=== PATIENT | female | born 1985 | race Caucasian/White ===

== ENCOUNTER 2021-06-23 18:11 | Inpatient (IN) ==
[2021-06-23] MEDS ORDERED: OXYTOCIN 30 UNITS/500 ML BAG IV PRN ×2 (18:59→23:56)
[2021-06-23] MEDS ORDERED: LACTATED RINGER'S 1,000 ML IV PRN (18:59)
[2021-06-23 19:32] LABS: Hematocrit (blood only) 41.9 % (37-47); Hemoglobin 14.8 g/dL (12.0-16.0); Mean Corpuscular Hemoglobin 31.8 pg (25-34); Mean Corpuscular Hgb Conc 35.3 g/dL (32-36); Mean Corpuscular Volume 90.1 fL (80-100); Mean Platelet Volume 10.9 fL (7.4-10.4); Platelet Count 227 K/uL (130-400); RDW Coefficient of Variation 14.2 % (11.5-14.5); RDW Standard Deviation 46.5 fL (36.4-46.3); Red Blood Count 4.65 M/uL (4.2-5.4); White Blood Count 11.39 K/uL (4.8-10.8)
--- NOTE | 2021-06-23 19:36 | History & Physical Report ---
Date of Service June 23, 2021 Assessment & Plan (1) : Plan: 36 y/o G1 at 40 wga presents in labor VSS Fetus cat 1 Labor - desires epidural, plan arom when comfortable if not srom GBS neg desires epidural, anesthesia aware History of Present Illness Chief Complaint: Contractions Primary Care Provider: NO PCP 36 y/o G1 at 40 wga w/ MICHAEL 06/23 by LMP presents w/ ctx increasing in frequency and intensity, <q5min for >1hr. +FM; denies LOF, VB PNI: R clubbed foot AMA Past [facility] Hx: G1 Hx irreg periods w/ PCOS 11/2020 neg cotest Denies hx STIs Allergies Allergy/AdvReac Type Severity Reaction Status Date / Time Sulfa (Sulfonamide Allergy Intermediate rash, hives Verified 06/23/21 19:07 Antibiotics) Home Medications Medication Instructions Recorded Confirmed Type cetirizine 10 mg tablet (Zyrtec) 10 mg PO DAILY PRN 11/28/20 06/22/21 History prenat.vits,rishi,[id number] 1 tab PO DAILY 11/28/20 06/22/21 History aspirin 81 mg tablet,delayed 81 mg PO DAILY 06/22/21 06/22/21 History release Patient History Medical History PCOS (polycystic ovarian syndrome) Surgical History S/P wisdom tooth extraction Family History Mother Dyslipidemia Aunt Breast cancer Ovarian cancer Grandfather (Maternal) Hypertension Social History Smoking Status: Never smoker Second Hand Exposure: No; Do You Dip or Chew Tobacco: No; Tobacco Cessation Education Requested by Patient: No Hx Alcohol Use: No Hx Substance Use: No Preferred Language: [place] Communication Ability: Effective Global Cmo Required: No Beliefs That Will Affect Care: None marital status: marital status details: Jass (34) [phone] Current Living Situation: Spouse Current Living Situation Comment: lvies with spouse, no pets. 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 Other Information That Helps Us Care for You: No Feels Safe at Home: Yes Safety Concerns: Feels Safe At This Time Assistive Devices: None Physical Exam Genitourinary: OB Exam Abdomen: + estimated weight (7) OB Exam Monitor Tracing: + external FHT monitor used, + external uterine monitor used (q4) and + category I (120/mod/+accel/-decel) SVE 5cm by nursing Results & Data ([place]) Vital Signs (Past 12 Hours) Vital Signs Temp Pulse Resp BP 06/23/21 18:29 97.7 F 20 06/23/21 18:28 79 121/76 Laboratory Results OB Labs: Blood Type O Positive 12/27/20 Antibody Screen NEGATIVE 12/27/20 Hemoglobin 12.8 g/dL (12.0-16.0) 04/04/21 Hematocrit 38.1 % (37-47) 04/04/21 Mean Corpuscular Volume 87.1 fL (80-100) 12/27/20 Platelet Count 264 K/uL (130-400) 12/27/20 Rubella IgG Antibody Immune (Immune) 12/27/20 Rapid Plasma Reagin Nonreactive (Nonreactive) 12/27/20 Hepatitis B Surface Antigen Neg (Neg) 12/27/20 HIV (1&2) Ab and P24 Ag, 4th Gener Neg (Neg) 12/27/20 Glucose 1 Hour 50 gm Load 109 mg/dl (70-130) 04/04/21 OB Optional Labs: Chlamydia trachomatis RNA NOT DETECTED (NOT DETECTED) 11/29/20 Neisseria gonorrhoeae RNA NOT DETECTED (NOT DETECTED) 11/29/20 Labs Reviewed: neg cf/sma--akh declined genetics/afp--ak GBS neg Diagnostic Findings anterior plac Code Status & VTE Plan VTE Prophylaxis Plan VTE Prophylaxis will be ordered: No Coding Level of Care Code None Diagnoses Z34.90
[2021-06-23] MEDS ORDERED: SODIUM CHLORIDE 0.9% INJ 10 ML VIAL ONE (19:37)
[2021-06-23] MEDS ORDERED: fentaNYL citrate 100 MCG/2 ML VIAL ONE (19:37)
[2021-06-23] MEDS ORDERED: ePHEDrine sulfate 50 MG/ML AMP ONE (19:37)
[2021-06-23] MEDS ORDERED: fentaNYL 2MCG/ML ROPIVACAINE 1.25MG/ML 100 ML BAG EPI ONE (19:38)
[2021-06-23] MEDS ORDERED: BUPIVACAINE 0.25% 30 ML VIAL ONE (19:38)
[2021-06-23] MEDS ORDERED: fentaNYL 2MCG/ML ROPIVACAINE 1.25MG/ML 100 ML BAG EPI PRN (19:56)
[2021-06-23] MEDS ORDERED: NALOXONE HCL 0.4 MG/1 ML VIAL/CARP IV PRN (19:56)
[2021-06-23] MEDS ORDERED: diphenhydrAMINE 50 MG/ML VIAL IV PRN (19:56)
[2021-06-23] MEDS ORDERED: NALBUPHINE HCL INJ 10 MG/ML AMP IV PRN (19:56)
[2021-06-23] MEDS ORDERED: NALOXONE HCL 1 MG in SODIUM CHLORIDE 0.9% 1000ML 1,000 ML IV PRN (19:56)
[2021-06-23] MEDS ORDERED: ePHEDrine sulfate 50 MG/ML AMP IV PRN (19:56)
[2021-06-23] MEDS ORDERED: ONDANSETRON INJ 2 MG/ML 2 ML VIAL IV PRN (19:56)
--- NOTE | 2021-06-23 19:58 | Anesthesiology Consultation ---
Date of Service June 23, 2021 Assessment & Plan Chart Review Chart Review: Patient NOT seen in Pre Admission Testing and Acceptable Risk for Labor Epidural Consults Requested none ASA ASA2 Proposed Anesthesia Anesthesia Type: Labor Epidural and CSE Risk / Benefits Reviewed With: PT / POA / Parent / Guardian, Accepts Plan and Informed Consent Obtained History Height/Weight Height: 5 ft 4 in Weight: 76.657 kg Allergies Allergy/AdvReac Type Severity Reaction Status Date / Time Sulfa (Sulfonamide Allergy Intermediate rash, hives Verified 06/23/21 19:07 Antibiotics) Medications Home Medications Medication Instructions Recorded Confirmed Last Taken cetirizine 10 mg tablet (Zyrtec) 10 mg PO DAILY PRN 11/28/20 06/22/21 Unknown prenat.vits,rishi,[id number] 1 tab PO DAILY 11/28/20 06/22/21 Unknown aspirin 81 mg tablet,delayed 81 mg PO DAILY 06/22/21 06/22/21 Unknown release NPO Date Last Intake of Fluids: 06/23/21 Time Last Intake of Fluids: 19:00 Date Last Intake of Solids: 06/23/21 Time Last Intake of Solids: 12:00 Past Medical History Medical History PCOS (polycystic ovarian syndrome) Exercise / Class Metabolic Activity II 4-5 Yardwork/Stairs/Walk up hill Past Family History Family History Mother Dyslipidemia Aunt Breast cancer Ovarian cancer Grandfather (Maternal) Hypertension Past Surgical History Surgical History S/P wisdom tooth extraction Past Anesthesia History No Hx of Anesthesia Complications and No Family Hx of Anesthesia Complications History of PONV No Hx of PONV and No Hx of Motion Sickness Social History Smoking Status: Never smoker Do You Dip or Chew Tobacco: No Hx Alcohol Use: No Hx Substance Use: No substance use type: does not use Review of Systems no chest pain or sob Physical Exam Vital Signs Last Vital Signs Temp 36.5 C 06/23/21 18:29 Pulse 65 06/23/21 19:56 Resp 20 06/23/21 18:29 BP 118/64 06/23/21 19:46 Pulse Ox 97 06/23/21 19:56 ENMT Mouth: no TMJ abnormality Thyromental Distance: > or= 3.5 Finger Breadths Mallampati Class: II Neck normal visual inspection Respiratory normal respiratory effort Auscultation: lungs clear to auscultation bilaterally Cardiovascular Rate/Rhythm: regular rate and regular rhythm Musculoskeletal Spine: normal cervical ROM Neurologic moves all extremities Psychiatric Orientation: alert and oriented x 3 Testing Laboratory Results 06/23/21 19:24
--- NOTE | 2021-06-23 22:11 | Delivery Summary ---
Vaginal Delivery Summary Date of Service June 23, 2021 Vaginal Delivery Summary and 2nd Degree LAC PREOPERATIVE DIAGNOSIS: 1. Single intrauterine at 40 weeks gestation 2. Labor 3. clubbed feet 4. Advanced maternal age POSTOPERATIVE DIAGNOSIS: 1. Single intrauterine at 40 weeks gestation 2. Labor 3. clubbed feet 4. Advanced maternal age 5. Delivered PROCEDURE: 1. Normal spontaneous vaginal delivery. SURGEON: Jacinda Burr MD ANESTHESIA: Epidural. ESTIMATED BLOOD LOSS: 300 mL FLUIDS: Continuous LR. URINE OUTPUT: None. COMPLICATIONS: None. CONDITION: Stable. INDICATIONS: 36 y/o G1 at 40 weeks gestation presented with contractions increasing in frequency and intensity. She was checked and found to be 5cm on arrival. She continued to spontaneously progress well. She received an epidural for pain control. Once comfortable, she was found to be complete with membranes past the introitus. Membranes were ruptured and she desired to push. FINDINGS: A viable male infant, weight pending with Apgars of 8 and 9 at 1 and 5 minutes respectively. SPECIMEN: Placenta, cord blood OPERATIVE REPORT: The patient progressed to 10 cm, 100% effaced and +2 station, pushed over intact perineum for 15 minutes with anesthesia to deliver a viable male infant, weight and Apgars as above. Head of delivered in CHRISTIANO position. No nuchal cord was present. Body and shoulders were delivered without difficulty. was delivered to maternal abdomen and nursing staff. Delayed cord clamping was performed for 60 seconds. Cord was clamped and cut. Cord blood was obtained. Placenta delivered spontaneously intact with 3-vessel cord. IV oxytocin and fundal massage were given for excellent hemostasis. Vagina, cervix, perineum, and placenta were inspected. A second degree laceration was noted and repaired using 3-0 Vicryl in the usual fashion. Hemostatic left labial scrape was noted and not needed to be repaired. Rectal exam confirmed no suture in the rectum. Sponge and needle counts correct x2. No sponges were left behind. Mother and stable in immediate period. [facility] [place] Charge Delivery Type Details: and 2nd Degree LAC
--- NOTE | 2021-06-23 22:32 | Anesthesia Procedure Note ---
Date of Service June 23, 2021 Anesthesia Post Epidural Note Vital Signs Vital Signs: Temp Pulse Resp BP Pulse Ox 36.5 C 75 20 123/71 99 06/23/21 18:29 06/23/21 22:17 06/23/21 18:29 06/23/21 22:17 06/23/21 21:36 Notes Mental Status: alert / awake / arousable and participated in evaluation Nausea / Vomiting: adequately controlled Pain: adequately controlled Airway Patency, RR, SpO2: stable & adequate BP & HR: stable & adequate Hydration State: stable & adequate Neuraxial Anesthesia: was administered and sensory block is resolving Anesthetic Complications: no major complications apparent and Pt Satisfied with anesthetic care Epidural: Removed without complications and With tip intact
[2021-06-23] MEDS ORDERED: HYDROCORTISONE ACETATE 25 MG SUPP PR PRN (23:56)
[2021-06-23] MEDS ORDERED: BENZOCAINE 20% AER SPR 82.5 GM CAN EXT PRN (23:56)
[2021-06-23] MEDS ORDERED: DIPHTHERIA/TETANUS/PERTUSSIS 0.5 ML SYR/VIAL IM ONE (23:56)
[2021-06-23] MEDS ORDERED: ACETAMINOPHEN 325 MG TAB PO PRN (23:56)
[2021-06-24] MEDS: IBUPROFEN 600 MG TAB PO PRN ×4 (03:02→20:03)
[2021-06-24] MEDS: DOCUSATE SODIUM 100 MG CAP PO SCH ×2 (07:41→21:00)
[2021-06-24] MEDS: PRENATAL VITAMIN 1 TAB PO SCH (07:41)
--- NOTE | 2021-06-24 07:59 | Obstetrical Progress Note ---
Date of Service June 24, 2021 Assessment & Plan (1) Encounter for care and examination after delivery: 36 yo PP1 from , doing well -Meeting all pp milestones -O+/rubella immune/ -f/u 6 weeks for appt, continue routine pp care Subjective Ambulation: ambulating normally Voiding: no voiding problems Passing Gas:: Yes Diet Tolerance:: regular diet Lochia:: Moderate Feeding Type:: breast feeding Pain well managed with medication Review of Systems Denies fevers, chills, n/v, BRADY, CP, SOB Physical Exam Constitutional WD/WN, vitals as above no acute distress Respiratory normal respiratory effort, lungs clear to auscultation Cardiovascular RRR, no murmur, no edema Gastrointestinal (Abdomen) Percussion/Palpation: abdomen soft; abdomen nontender fundus firm at umbilicus and NT Musculoskeletal BLE symmetric, nonerythematous, nontender Results & Data ([facility]) Vital Signs (Past 12 Hours) Vital Signs Temp Pulse Pulse Resp BP BP Pulse Ox 06/24/21 03:00 98.4 F 76 16 109/67 96 06/24/21 00:25 98.4 F 90 16 113/60 97 06/24/21 00:01 83 116/59 L 06/24/21 00:00 97.9 F 20 06/23/21 23:46 81 116/61 06/23/21 23:31 89 123/64 06/23/21 23:30 20 06/23/21 23:16 103 H 123/58 L 06/23/21 23:01 78 118/64 06/23/21 23:00 18 06/23/21 22:47 76 121/65 06/23/21 22:32 75 144/68 H 06/23/21 22:17 75 123/71 06/23/21 22:01 76 119/72 06/23/21 21:36 88 99 06/23/21 21:31 79 96 06/23/21 21:26 98 H 88 L 06/23/21 21:24 86 117/68 06/23/21 21:23 81 118/69 06/23/21 21:21 92 H 98 06/23/21 21:16 95 H 97 06/23/21 21:11 82 98 06/23/21 21:07 81 94/55 L 06/23/21 21:06 79 98 06/23/21 21:01 65 97 06/23/21 20:56 60 97 06/23/21 20:54 67 100/57 L 06/23/21 20:51 62 97 06/23/21 20:46 65 95 06/23/21 20:41 61 97 06/23/21 20:38 65 102/57 L 06/23/21 20:36 75 98 06/23/21 20:31 73 97 06/23/21 20:26 64 93/61 L 99 06/23/21 20:21 76 99 06/23/21 20:19 72 93 06/23/21 20:16 68 112/70 99 06/23/21 20:14 63 113/70 06/23/21 20:12 71 116/74 91 06/23/21 20:11 64 100 06/23/21 20:10 116 H 239/165 H 06/23/21 20:06 64 131/67 98 06/23/21 20:01 81 99 06/23/21 20:00 59 L 91 06/23/21 19:59 64 116/58 L
[2021-06-24 08:02] LABS: Hematocrit (blood only) 36.1 % (37-47); Hemoglobin 12.1 g/dL (12.0-16.0); Mean Corpuscular Hemoglobin 30.6 pg (25-34); Mean Corpuscular Hgb Conc 33.5 g/dL (32-36); Mean Corpuscular Volume 91.2 fL (80-100); Mean Platelet Volume 10.7 fL (7.4-10.4); Platelet Count 189 K/uL (130-400); RDW Coefficient of Variation 14.2 % (11.5-14.5); RDW Standard Deviation 47.2 fL (36.4-46.3); Red Blood Count 3.96 M/uL (4.2-5.4); White Blood Count 11.82 K/uL (4.8-10.8)
[2021-06-24] MEDS ORDERED: bisacodyL 5 MG TABEC PO SCH (20:00)
[2021-06-25] MEDS ORDERED: bisacodyL 10 MG SUPP PR PRN
--- NOTE | 2021-06-25 07:21 | Obstetrical Progress Note ---
Date of Service June 25, 2021 Assessment & Plan (1) Encounter for care and examination after delivery: 36 yo PP1 from , doing well -Meeting all pp milestones -O+/rubella immune/ -stable for d/c home, f/u 6 weeks for appt Subjective Ambulation: ambulating normally Voiding: no voiding problems Passing Gas:: Yes Diet Tolerance:: regular diet Lochia:: Moderate Feeding Type:: breast feeding Pain well managed with medication Review of Systems Denies fevers, chills, n/v, BRADY, CP, SOB Physical Exam Constitutional WD/WN, vitals as above no acute distress Respiratory normal respiratory effort, lungs clear to auscultation Cardiovascular RRR, no murmur, no edema Gastrointestinal (Abdomen) Percussion/Palpation: abdomen soft; abdomen nontender fundus firm at umbilicus and NT Musculoskeletal BLE symmetric, nonerythematous, nontender Results & Data ([facility]) Vital Signs (Past 12 Hours) Vital Signs Temp Pulse Resp BP Pulse Ox 06/24/21 20:00 98.2 F 75 18 132/74 98
[2021-06-25] MEDS: PRENATAL VITAMIN 1 TAB PO SCH (11:17)
[2021-06-25] MEDS: DOCUSATE SODIUM 100 MG CAP PO SCH (11:18)
== END 2021-06-25 13:45 | disposition home or self-care (01) | DRG 807 ==
LOC: OPB 18:11 → 4S1 18:12 → 4E2 06-24 00:34